=== PATIENT | female | born 1995 | race Caucasian/White ===

== ENCOUNTER 2021-04-18 10:40 | Emergency (ER) | payer OTHER, SELFPAY ==
--- NOTE | ~2021-04-18 | CT_ITS ---
Indication: Headache EXAMINATION: CT brain, CT facial bones. Radiation dose is 656 and 399. Axial imaging with coronal and sagittal reformatted images. Noncontrast. Comparison previous dated 01/07/2020 CT brain; No midline shift. No mass effect. There is no hemorrhage. The basilar cisterns appear patent. The posterior fossa risk grossly within normal limits. There is no extra-axial collection. The gutierrez-white matter is within normal limits. Ventricular system within normal limits. Review of the bone windows does not demonstrate evidence for fracture. CT facial bones; The sinuses are grossly clear. There is no fracture. CT/CT facial bones wo con IMPRESSION: Negative acute noncontrast CT of the brain. The sinuses are clear. No fracture of the facial bones.
--- NOTE | ~2021-04-18 | CT_ITS ---
Indication: Headache EXAMINATION: CT brain, CT facial bones. Radiation dose is 656 and 399. Axial imaging with coronal and sagittal reformatted images. Noncontrast. Comparison previous dated 01/07/2020 CT brain; No midline shift. No mass effect. There is no hemorrhage. The basilar cisterns appear patent. The posterior fossa risk grossly within normal limits. There is no extra-axial collection. The gutierrez-white matter is within normal limits. Ventricular system within normal limits. Review of the bone windows does not demonstrate evidence for fracture. CT facial bones; The sinuses are grossly clear. There is no fracture. CT/CT head/brain wo con IMPRESSION: Negative acute noncontrast CT of the brain. The sinuses are clear. No fracture of the facial bones.
[2021-04-18 11:40] VITALS: BP 117/68; PULSE 70; RESP 16; TEMP 36.5; O2SAT 98; BMI 33.3
--- NOTE | 2021-04-18 15:47 | ED_ITS ---
HPI - General Adult General Chief complaint: General Medical <Jorge Rasmussen MD - Last Filed: 04/18/21 17:02> Stated complaint: jaw pain, numb lip <Jorge Rasmussen MD - Last Filed: 04/18/21 17:02> Time Seen by Provider: 04/18/21 15:23 <Jorge Rasmussen MD - Last Filed: 04/18/21 17:02> Source: patient <Jorge Rasmussen MD - Last Filed: 04/18/21 17:02> Mode of arrival: ambulatory <Jorge Rasmussen MD - Last Filed: 04/18/21 17:02> Limitations: no limitations <Jorge Rasmussen MD - Last Filed: 04/18/21 17:02> History of Present Illness HPI narrative: this is 26 years old of female presented to the emergency depart complaining of right jaw pain since last night and now she is complaining of right-sided headache. She does have a history of migraines denies any fever chills she denies any neck pain <Jorge Rasmussen MD - Last Filed: 04/18/21 17:02> Onset (ago): day(s) (1) <Jorge Rasmussen MD - Last Filed: 04/18/21 17:02> Location: head and right <Jorge Rasmussen MD - Last Filed: 04/18/21 17:02> Radiation: other (rt jaw) <Jorge Rasmussen MD - Last Filed: 04/18/21 17:02> Severity: moderate <Jorge Rasmussen MD - Last Filed: 04/18/21 17:02> Severity scale (1-10): 5 <Jorge Rasmussen MD - Last Filed: 04/18/21 17:02> Quality: aching <Jorge Rasmussen MD - Last Filed: 04/18/21 17:02> Pain Consistency: constant <Jorge Rasmussen MD - Last Filed: 04/18/21 17:02> Exacerbating factors: none <Jorge Rasmussen MD - Last Filed: 04/18/21 17:02> Related Data Home medications: Home Medications Medication Instructions Recorded Confirmed escitalopram oxalate 20 mg PO DAILY 04/18/21 04/18/21 Previous Rx's Medication Instructions Recorded ketorolac 10 mg PO TID PRN 5 Days tab 04/18/21 <Jorge Rasmussen MD - Last Filed: 04/18/21 17:02> Allergies/adverse reactions: Allergies Allergy/AdvReac Type Severity Reaction Status Date / Time No Known Allergies Allergy Verified 04/18/21 11:40 <Jorge Rasmussen MD - Last Filed: 04/18/21 17:02> Review of Systems Review of Systems: Yes all other systems are reviewed and are negative <Jorge Rasmussen MD - Last Filed: 04/18/21 17:02> Cardiovascular: Cardiovascular: Reports no additional cardiovascular complaints <Jorge Rasmussen MD - Last Filed: 04/18/21 17:02> Respiratory: Respiratory: Denies no additional respiratory complaints, Denies hemoptysis and Denies excessive phlegm production <Jorge Rasmussen MD - Last Filed: 04/18/21 17:02> Gastrointestinal: Gastrointestinal: Denies no additional gastrointestinal complaints, Denies abdominal pain and Denies belching <Jorge Rasmussen MD - Last Filed: 04/18/21 17:02> Musculoskeletal: Musculoskeletal: Reports no additional musculoskeletal complaints <Jorge Rasmussen MD - Last Filed: 04/18/21 17:02> Neurologic: Reports system reviewed and no additional complaints, except as documented <Jorge Rasmussen MD - Last Filed: 04/18/21 17:02> [facility] Past Medical History Medical History: Medical History Migraines <Jorge Rasmussen MD - Last Filed: 04/18/21 17:02> Social History Social History: Social History Alcohol intake: never Patient Tobacco Use Status: Never used Tobacco Use of substances other than those prescribed or required for medical reasons: No Advance Directives: Yes Advance Directives Information Provided: Yes Advance Directives on File: No <Jorge Rasmussen MD - Last Filed: 04/18/21 17:02> Physical Exam Vital Signs: Vital Signs: Last Vital Signs Temp 97.7 F 04/18/21 11:40 Pulse 62 04/18/21 17:45 Resp 17 04/18/21 17:45 BP 113/63 04/18/21 17:45 Pulse Ox 98 04/18/21 17:45 Body Mass Index 33.3 <Jorge Rasmussen MD - Last Filed: 04/18/21 17:02> Vital Signs: Last Vital Signs Temp 97.7 F 04/18/21 11:40 Pulse 62 04/18/21 17:45 Resp 17 04/18/21 17:45 BP 113/63 04/18/21 17:45 Pulse Ox 98 04/18/21 17:45 Body Mass Index 33.3 <Ana Ballesteros MD - Last Filed: 04/18/21 19:34> Const: General: cooperative <Jorge Rasmussen MD - Last Filed: 04/18/21 17:02> Orientation/consciousness: oriented to person and oriented to place <Jorge Rasmussen MD - Last Filed: 04/18/21 17:02> HENMT: Head: Yes normal to inspection and Yes No palpable skull fracture present <Jorge Rasmussen MD - Last Filed: 04/18/21 17:02> Eyes: General: appearance normal, both eyes and all related structures <Jorge Rasmussen MD - Last Filed: 04/18/21 17:02> Neck: Neck: Yes normal visual inspection, Yes full ROM and Yes no lymph adenopathy <Jorge Rasmussen MD - Last Filed: 04/18/21 17:02> Chest: Chest palpation & inspection: normal inspection of the chest and normal palpation of entire chest wall <Jorge Rasmussen MD - Last Filed: 04/18/21 17:02> Resp: Effort & Inspection: normal respiratory effort and able to speak in complete sentences <Jorge Rasmussen MD - Last Filed: 04/18/21 17:02> Cardio: Jugular venous distension: no JVD <Jorge Rasmussen MD - Last Gus ed: 04/18/21 17:02> Palpation: normal PMI <Jorge Rasmussen MD - Last Filed: 04/18/21 17:02> Rate: regular rate <Jorge Rasmussen MD - Last Filed: 04/18/21 17:02> Rhythm: regular rhythm <Jorge Rasmussen MD - Last Filed: 04/18/21 17:02> GI: Inspection: Yes normal to inspection <Jorge Rasmussen MD - Last Filed: 04/18/21 17:02> Skin: General skin exam: no rashes or lesions noted, elasticity normal and turgor normal <Jorge Rasmussen MD - Last Filed: 04/18/21 17:02> Neuro: General: oriented to person and oriented to place <Jorge Rasmussen MD - Last Filed: 04/18/21 17:02> Cranial nerves: Yes CN's II-XII intact bilaterally <Jorge Rasmussen MD - Last Filed: 04/18/21 17:02> Extrem: General: Yes normal to inspection, Yes full ROM, Yes capillary refill normal, Yes normal exam except as noted and Yes no joint enlargement <Jorge Rasmussen MD - Last Filed: 04/18/21 17:02> Psych: Appearance: grossly normal <Jorge Rasmussen MD - Last Filed: 04/18/21 17:02> Course Course Course Narrative: imaging is negative, I discussed the CT scan with the patient. It seems that the patient's pain source is a wisdom tooth in the right maxillary side. The gum itself is not infected, patient denies constant pain, only when she chews on that side. Patient will follow-up with her dentist. <Ana Ballesteros MD - Last Filed: 04/18/21 19:34> Reevaluation(s) Reevaluation #1: remain stable waiting for the imaging result, she has a normal white count she is afebrile neck is supple I do not think this patient has meningitis picture is no consistent with a subarachnoid bleed headache was not sudden started in the jaw. I anticipate discharge if the imaging are negative <Jorge Rasmussen MD - Last Filed: 04/18/21 17:02> Medical Decision Making Lab Data Result diagrams: : 04/18/21 16:19 04/18/21 16:19 <Jorge Rasmussen MD - Last Filed: 04/18/21 17:02> Labs: Lab Results 04/18/21 04/18/21 Range/Units 16:19 16:19 WBC 7.1 (4.8-10.8) X10*3/uL RBC 4.38 (4.20-5.50) X10*6/uL Hgb 12.0 (12.0-16.0) g/dl Hct 37.6 (37-47) % MCV 85.8 (80-98) fL MCH 27.4 (27.0-33.0) pg MCHC 31.9 (31.0-35.0) g/dl RDW 13.0 (11.0-16.0) % Plt Count 279 (160-400) X10*3/uL MPV 10.8 (9.4-12.3) fL Immature Gran % (Auto) 0.1 (0.0-0.4) % Neut % (Auto) 65.1 (45-73) % Lymph % (Auto) 26.0 (20-40) % [place] % (Auto) 6.9 (2-11) % Eos % (Auto) 1.6 (0-4) % Baso % (Auto) 0.3 (0-2) % Lymph # (Auto) 1.8 (1.2-4.9) X10*3/uL [place] # (Auto) 0.5 (0.1-1.2) X10*3/uL Eos # (Auto) 0.1 (0.0-0.4) X10*3/uL Baso # (Auto) 0.0 (0.0-0.2) X10*3/uL Abs Immat Gran (auto) 0.01 (0.00-0.03) X10*3/uL Absolute Neuts (auto) 4.6 (2.0-8.3) X10*3/uL Absolute Nucleated RBC 0.000 (0.0-0.012) X10*3/uL Nucleated RBC % (auto) 0.0 (0.0-0.2) /100WBC Sodium 140 (135-145) mmol/L Potassium 4.0 (3.3-5.1) mmol/L Chloride 105 (96-108) mmol/L Carbon Dioxide 27 (22-29) mmol/L Anion Gap 12 (12-20) BUN 11 (9-16) mg/dL Creatinine 0.74 (0.5-1.4) mg/dL Estim Creat Clear Calc 125.9 Estimated GFR > 60 Random Glucose 90 (60-115) mg/dL Calcium 9.2 (8.4-10.2) mg/dL Total Bilirubin 0.5 (0.0-1.0) mg/dL AST 18 (5-31) U/L ALT 16 (0-31) U/L Alkaline Phosphatase 86 (39-117) U/L Total Protein 7.5 (6.5-8.0) g/dL Albumin 4.4 (3.5-5.0) g/dL Beta HCG, Quant < 2 mIU/mL <Jorge Rasmussen MD - Last Filed: 04/18/21 17:02> Lab Results 04/18/21 04/18/21 Range/Units 16:19 16:19 WBC 7.1 (4.8-10.8) X10*3/uL RBC 4.38 (4.20-5.50) X10*6/uL Hgb 12.0 (12.0-16.0) g/dl Hct 37.6 (37-47) % MCV 85.8 (80-98) fL MCH 27.4 (27.0-33.0) pg MCHC 31.9 (31.0-35.0) g/dl RDW 13.0 (11.0-16.0) % Plt Count 279 (160-400) X10*3/uL MPV 10.8 (9.4-12.3) fL Immature Gran % (Auto) 0.1 (0.0-0.4) % Neut % (Auto) 65.1 (45-73) % Lymph % (Auto) 26.0 (20-40) % [place] % (Auto) 6.9 (2-11) % Eos % (Auto) 1.6 (0-4) % Baso % (Auto) 0.3 (0-2) % Lymph # (Auto) 1.8 (1.2-4.9) X10*3/uL [place] # (Auto) 0.5 (0.1-1.2) X10*3/uL Eos # (Auto) 0.1 (0.0-0.4) X10*3/uL Baso # (Auto) 0.0 (0.0-0.2) X10*3/uL Abs Immat Gran (auto) 0.01 (0.00-0.03) X10*3/uL Absolute Neuts (auto) 4.6 (2.0-8.3) X10*3/uL Absolute Nucleated RBC 0.000 (0.0-0.012) X10*3/uL Nucleated RBC % (auto) 0.0 (0.0-0.2) /100WBC Sodium 140 (135-145) mmol/L Potassium 4.0 (3.3-5.1) mmol/L Chloride 105 (96-108) mmol/L Carbon Dioxide 27 (22-29) mmol/L Anion Gap 12 (12-20) BUN 11 (9-16) mg/dL Creatinine 0.74 (0.5-1.4) mg/dL Estim Creat Clear Calc 125.9 Estimated GFR > 60 Random Glucose 90 (60-115) mg/dL Calcium 9.2 (8.4-10.2) mg/dL Total Bilirubin 0.5 (0.0-1.0) mg/dL AST 18 (5-31) U/L ALT 16 (0-31) U/L Alkaline Phosphatase 86 (39-117) U/L Total Protein 7.5 (6.5-8.0) g/dL Albumin 4.4 (3.5-5.0) g/dL Beta HCG, Quant < 2 mIU/mL <Ana Ballesteros MD - Last Filed: 04/18/21 19:34> Imaging Data face and head CT: Radiologist's impression: [address] Scan ReportSigned Patient: Martina Chou LMR#: [id number]: 1995Acct:[id number]/Sex: 26 / FADM Date: 04/18/21Loc: [address]: Ordering Physician: JORGE RASMUSSEN MD Date of Service: 04/18/21 Procedure(s): CT facial bones wo con Accession Number(s): [id number] cc: JORGE RASMUSSEN MD~ Indication: Headache EXAMINATION: CT brain, CT facial bones. Radiation dose is 656 and 399. Axial imaging with coronal and sagittal reformatted images. Noncontrast. Comparison previous dated 01/07/2020 CT brain; No midline shift. No mass effect. There is no hemorrhage. The basilar cisterns appear patent. The posterior fossa risk grossly within normal limits. There is no extra-axial collection. The gutierrez-white matter is within normal limits. Ventricular system within normal limits. Review of the bone windows does not demonstrate evidence for fracture. CT facial bones; The sinuses are grossly clear. There is no fracture. CT/CT facial bones wo con IMPRESSION: Negative acute noncontrast CT of the brain. The sinuses are clear. No fracture of the facial bones. <Ana Ballesteros MD - Last Filed: 04/18/21 19:34> Discharge Plan Discharge Clinical Impression: Jaw pain <Jorge Rasmussen MD - Last Filed: 04/18/21 17:02> Patient Disposition: Home, Self-Care <Jorge Rasmussen MD - Last Filed: 04/18/21 17:02> Additional Instructions: please follow-up with her dentist. Please follow-up with your primary care physician tomorrow. If you have any worsening or new symptoms, please return to the emergency room or call 911 <Jorge Rasmussen MD - Last Filed: 04/18/21 17:02> Prescriptions: New ketorolac 10 mg tablet 10 mg PO TID PRN (Reason: pain) 5 Days RF: 0 No Action escitalopram oxalate 20 mg Tablet 20 mg PO DAILY RF: 0 <Jorge Rasmussen MD - Last Filed: 04/18/21 17:02>
[2021-04-18 16:32] LABS: MANUAL DIFF FLAG NO
[2021-04-18 16:36] LABS: Basophils Percent Auto 0.3 % (0-2); Eosinophils Absolute Auto 0.1 X10*3/uL (0.0-0.4); Eosinophils Percent Auto 1.6 % (0-4); Hematocrit 37.6 % (37-47); Imm Gran Abs Auto 0.01 X10*3/uL (0.00-0.03); Imm Gran Pct Auto 0.1 % (0.0-0.4); Lymphocytes Absolute Auto 1.8 X10*3/uL (1.2-4.9); Mean Corpuscular HGB Conc 31.9 g/dl (31.0-35.0); Mean Corpuscular Hemoglobin 27.4 pg (27.0-33.0); Mean Corpuscular Volume 85.8 fL (80-98); Mean Platelet Volume 10.8 fL (9.4-12.3); Monocytes Absolute Auto 0.5 X10*3/uL (0.1-1.2); Monocytes Percent Auto 6.9 % (2-11); Neutrophils Absolute Auto 4.6 X10*3/uL (2.0-8.3); Neutrophils Percent Auto 65.1 % (45-73); Platelet Count 279 X10*3/uL (160-400); Red Blood Count 4.38 X10*6/uL (4.20-5.50); White Blood Count 7.1 X10*3/uL (4.8-10.8)
[2021-04-18] MEDS: Ketorolac Tromethamine 15 MG/ML VIAL IVPUSH (16:40)
[2021-04-18 17:06] LABS: Alanine Aminotransferase 16 U/L (0-31); Albumin Level 4.4 g/dL (3.5-5.0); Alkaline Phosphatase 86 U/L (39-117); Anion Gap 12 (12-20); Aspartate Amino Transferase 18 U/L (5-31); Bilirubin Total 0.5 mg/dL (0.0-1.0); Blood Urea Nitrogen 11 mg/dL (9-16); Calcium 9.2 mg/dL (8.4-10.2); Carbon Dioxide 27 mmol/L (22-29); Chloride 105 mmol/L (96-108); Creatinine Clr Calc Pharmacy 125.9; Estimated Glomerular Filt Rate > 60; Glucose Random 90 mg/dL (60-115); Sodium 140 mmol/L (135-145); Total Protein 7.5 g/dL (6.5-8.0)
[2021-04-18 17:12] LABS: HCG Quantitative < 2 mIU/mL
[2021-04-18] MEDS: Butalb/Acetamin/Caff 50/325/40 TABLET 2 TAB PO (17:40)
[2021-04-18 17:45] VITALS: BP 113/63; PULSE 62; RESP 17; O2SAT 98
--- NOTE | 2021-04-18 17:55 | HE.PHANOTE ---
med rec complete, no issues
[2021-04-18 19:51] VITALS: BP 107/55; PULSE 63; RESP 18; O2SAT 99
== END 2021-04-18 19:52 | disposition home or self-care (01) ==
PROVIDERS: Emergency Medicine; Emergency Provider Emergency Medicine
DX: R68.84 Jaw pain (principal)
CPT/HCPCS: 36415; 70450; 70486; 80053; 84702; 85025; 96374; 99284; J1885

== ENCOUNTER 2021-05-01 17:27 | Emergency (ER) | payer OTHER, SELFPAY ==
--- NOTE | ~2021-05-01 | CT_ITS ---
EXAMINATION: CT HEAD WITHOUT CONTRAST CLINICAL INFORMATION: Facial droop COMPARISON: 04/18/2021 TECHNIQUE: Contiguous axial imaging was performed from the skull base to vertex without intravenous administration of contrast. This CT examination was performed using dose optimization techniques as appropriate, variously including the following: *Automated exposure control *Adjustment of mA and/or kV according to patient size (this includes techniques or standardized protocols for targeted exams where dose is matched to indication/reason for exam; i.e. extremities or head) *Use of iterative reconstruction technique DLP: 687 mGy-cm FINDINGS: There is no evidence of acute intracranial hemorrhage or territorial infarction. No abnormal mass effect or midline shift is seen. Page to white matter differentiation is well preserved. No extra-axial fluid collections are identified. The ventricles are normal in size. There is no abnormal attenuation within the brain parenchyma. The osseous structures and soft tissues are normal. The mastoid air cells and visualized portions of the paranasal sinuses are well aerated. CT/CT head/brain wo con IMPRESSION: No acute intracranial pathology.
[2021-05-01 17:32] VITALS: BP 118/82; PULSE 66; RESP 16; TEMP 36.8; O2SAT 98; BMI 33.3
[2021-05-01 18:31] LABS: MANUAL DIFF FLAG NO
[2021-05-01 18:38] LABS: INTERNATIONAL NORM RATIO 1.1 (0.9-1.1)
[2021-05-01 18:40] LABS: Partial Thromboplastin Time 35.3 SEC (24.1-38.0)
[2021-05-01 18:45] VITALS: BP 117/70; PULSE 54; RESP 16; TEMP 36.8; O2SAT 99
[2021-05-01 18:47] LABS: Basophils Percent Auto 0.3 % (0-2); Eosinophils Absolute Auto 0.1 X10*3/uL (0.0-0.4); Eosinophils Percent Auto 2.1 % (0-4); Hemoglobin 11.5 g/dl (12.0-16.0); Imm Gran Abs Auto 0.01 X10*3/uL (0.00-0.03); Imm Gran Pct Auto 0.2 % (0.0-0.4); Lymphocytes Absolute Auto 1.3 X10*3/uL (1.2-4.9); Lymphocytes Percent Auto 21.3 % (20-40); Mean Corpuscular HGB Conc 31.9 g/dl (31.0-35.0); Mean Corpuscular Hemoglobin 27.2 pg (27.0-33.0); Mean Corpuscular Volume 85.1 fL (80-98); Mean Platelet Volume 10.6 fL (9.4-12.3); Monocytes Absolute Auto 0.5 X10*3/uL (0.1-1.2); Monocytes Percent Auto 7.9 % (2-11); Neutrophils Absolute Auto 4.2 X10*3/uL (2.0-8.3); Neutrophils Percent Auto 68.2 % (45-73); Platelet Count 322 X10*3/uL (160-400); Red Blood Count 4.23 X10*6/uL (4.20-5.50); Red Cell Distribution Width 13.1 % (11.0-16.0); White Blood Count 6.1 X10*3/uL (4.8-10.8)
[2021-05-01 19:01] LABS: Alanine Aminotransferase 13 U/L (0-31); Albumin Level 4.3 g/dL (3.5-5.0); Alkaline Phosphatase 79 U/L (39-117); Anion Gap 13 (12-20); Aspartate Amino Transferase 16 U/L (5-31); Bilirubin Total 0.5 mg/dL (0.0-1.0); Blood Urea Nitrogen 12 mg/dL (9-16); Calcium 9.3 mg/dL (8.4-10.2); Carbon Dioxide 26 mmol/L (22-29); Chloride 105 mmol/L (96-108); Creatinine Clr Calc Pharmacy 112.3; Estimated Glomerular Filt Rate > 60; Glucose Random 94 mg/dL (60-115); Potassium 4.6 mmol/L (3.3-5.1); Sodium 139 mmol/L (135-145); Total Protein 7.4 g/dL (6.5-8.0)
--- NOTE | 2021-05-01 19:07 | ED_ITS ---
HPI - Neuro Symptoms/Deficit General Chief Complaint: Neuro Symptoms/Deficit Stated Complaint: stroke like Time Seen by Provider: 05/01/21 17:56 Source: patient Mode of arrival: ambulatory Limitations: no limitations History of Present Illness HPI Narrative: Patient presents to the ER for for left facial droop that began around 12:00. Patient states watery and tearing from left eye with left-sided facial droop. Patient denies any slurred speech, paralysis of extremities, loss of vision, headache, or dizziness. Patient denies being on any control any history of stroke or family history of stroke less than 40. Patient states last week she saw a bite on the posterior of her left arm and does not know if it was a tick bite. Patient states facial droop occurred around 12:00pm. Related Data Home Medications Medication Instructions Recorded Confirmed escitalopram oxalate 20 mg PO DAILY 04/18/21 04/18/21 Previous Rx's Medication Instructions Recorded ketorolac 10 mg PO TID PRN 5 Days tab 04/18/21 doxycycline hyclate 100 mg PO BID 7 Days #14 cap 05/01/21 prednisone 40 mg PO DAILY 5 Days #10 tab 05/01/21 Allergies Allergy/AdvReac Type Severity Reaction Status Date / Time No Known Allergies Allergy Verified 04/18/21 11:40 Review of Systems Review of Systems: Yes all other systems are reviewed and are negative Constitutional: Constitutional: Reports as per HPI and Reports no additional constitutional complaints Eyes: Eyes: Reports as per HPI and Reports no additional eye complaints ENT: Reports system reviewed and no additional complaints, except as documented and Reports as per HPI Cardiovascular: Cardiovascular: Reports as per HPI and Reports no additional cardiovascular complaints Respiratory: Respiratory: Reports as per HPI and Reports no additional res piratory complaints Gastrointestinal: Gastrointestinal: Reports as per HPI and Reports no addition al gastrointestinal complaints Genitourinary: Genitourinary: Reports no additional female genitourinary complaints and Reports as per HPI Musculoskeletal: Musculoskeletal: Reports no additional musculoskeletal complaints and Reports as per HPI Neurologic: Reports system reviewed and no additional complaints, except as documented and Reports as per HPI Comments: Left-sided facial droop PMFSH Past Medical History Medical History Migraines Social History Social History Alcohol intake: never Patient Tobacco Use Status: Never used Tobacco Advance Directives: No Advance Directives Information Provided: Yes Physical Exam Vital Signs: Vital Signs: Last Vital Signs Temp 98.2 F 05/01/21 18:45 Pulse 54 05/01/21 18:45 Resp 16 05/01/21 18:45 BP 117/70 05/01/21 18:45 Pulse Ox 99 05/01/21 18:45 Body Mass Index 33.3 Const: General: cooperative, healthy appearing, comfortable, no acute distress, well developed, alert and awake Orientation/consciousness: patient oriented x3 HENMT: Head: Yes normal to inspection, Yes No palpable skull fracture present, Yes normocephalic, Yes atraumatic and No abrasion Eyes: General: appearance normal, both eyes and all related structures Neck: Neck: Yes normal visual inspection, Yes full ROM, Yes no lymphadenopathy, Yes no meningeal signs, Yes trachea midline, Yes supple and No tender Chest: Chest palpation & inspection: normal inspection of the chest and normal palpation of entire chest wall Resp: Effort & Inspection: normal respiratory effort and able to speak in complete sentences Cardio: Jugular venous distension: no JVD Heart sounds: S1 normal heart sound present and S2 normal heart sound present GI: Inspection: Yes normal to inspection and No abdominal wall ecchymosis Palpation (GI): Soft to palpation, not firm, nontender, no guarding and not rigid : General: No CVA tenderness and Yes no CVA tenderness Back/Spine/Pelvis: Back: no CVA tenderness, No CVA tenderness and No back tenderness Skin: General skin exam: no rashes or lesions noted and elasticity normal Neuro: Other: Positive for left facial droop. Patient unable to lift left eyebrow and negative for any wrinkling or crease of left forehead when asking her to lift both eyebrows. Negative for slurred speech. Negative pronator drift. All extremities equal strength 5+. [id number] and rapid head movement. negtive rhomberg. General: patient oriented x3, gait normal, no meningeal signs and CN's II-XI intact bilaterally Cranial nerves: Yes CN's II-XII intact bilaterally Extrem: Shoulder/upper arm images: 1. Area of erythema and tenderness but negative for any bull's eye Psych: Appearance: grossly normal, well kempt and not disheveled Course Course Course Narrative: Decides facial droop negative for any other neuro deficits. Diagnosis indicate Gonsalves's palsy. We will do head CT scan screen and order labs including Lyme and HSV. Presently physical exam does not indicate [place] Th[place]kar syndrome Reevaluation(s) Reevaluation #1: His CT scan came back normal. Dr. Peraza evaluated patient and agreed patient is having gonsalves's palsy and not stroke. Patient will be discharged with doxycycline and steroids. Patient will follow-up with neurology. Patient's has left facial droop. Time: 19:37 MDM - Neuro Symptoms/Deficit MDM Narrative Medical decision making narrative: Gonsalves's palsy Lab Data Result diagrams: 05/01/21 18:25 05/01/21 18:25 Labs: Lab Results 05/01/21 05/01/21 05/01/21 Range/Units 18:25 18:25 18:25 WBC 6.1 (4.8-10.8) X10*3/uL RBC 4.23 (4.20-5.50) X10*6/uL Hgb 11.5 L (12.0-16.0) g/dl Hct 36.0 L (37-47) % MCV 85.1 (80-98) fL MCH 27.2 (27.0-33.0) pg MCHC 31.9 (31.0-35.0) g/dl RDW 13.1 (11.0-16.0) % Plt Count 322 (160-400) X10*3/uL MPV 10.6 (9.4-12.3) fL Immature Gran % (Auto) 0.2 (0.0-0.4) % Neut % (Auto) 68.2 (45-73) % Lymph % (Auto) 21.3 (20-40) % [place] % (Auto) 7.9 (2-11) % Eos % (Auto) 2.1 (0-4) % Baso % (Auto) 0.3 (0-2) % Lymph # (Auto) 1.3 (1.2-4.9) X10*3/uL [place] # (Auto) 0.5 (0.1-1.2) X10*3/uL Eos # (Auto) 0.1 (0.0-0.4) X10*3/uL Baso # (Auto) 0.0 (0.0-0.2) X10*3/uL Abs Immat Gran (auto) 0.01 (0.00-0.03) X10*3/uL Absolute Neuts (auto) 4.2 (2.0-8.3) X10*3/uL Absolute Nucleated RBC 0.000 (0.0-0.012) X10*3/uL Nucleated RBC % (auto) 0.0 (0.0-0.2) /100WBC PT 13.0 (9.9-13.0) SEC INR 1.1 (0.9-1.1) APTT 35.3 (24.1-38.0) SEC Sodium 139 (135-145) mmol/L Potassium 4.6 (3.3-5.1) mmol/L Chloride 105 (96-108) mmol/L Carbon Dioxide 26 (22-29) mmol/L Anion Gap 13 (12-20) BUN 12 (9-16) mg/dL Creatinine 0.83 (0.5-1.4) mg/dL Estim Creat Clear Calc 112.3 Estimated GFR > 60 Random Glucose 94 (60-115) mg/dL Calcium 9.3 (8.4-10.2) mg/dL Total Bilirubin 0.5 (0.0-1.0) mg/dL AST 16 (5-31) U/L ALT 13 (0-31) U/L Alkaline Phosphatase 79 (39-117) U/L Total Protein 7.4 (6.5-8.0) g/dL Albumin 4.3 (3.5-5.0) g/dL Discharge Plan Discharge Clinical Impression: Gonsalves's palsy Patient Disposition: Home, Self-Care Instructions: Gonsalves Palsy (ED) Additional Instructions: A head CT scan came back negative for stroke. History physical exam indicate Gonsalves's palsy. Her Lyme and HSV blood test is still pending and will be followed up by a [facility] primary care provider and referred neurologist. You will be discharged with doxycycline and prednisone. Return to the ED immediately for any slurred speech, paralysis of extremities, loss of vision, or any other concerning symptoms. Prescriptions: New prednisone 20 mg tablet 40 mg PO DAILY 5 Days Qty: 10 RF: 0 doxycycline hyclate 100 mg capsule 100 mg PO BID 7 Days Qty: 14 RF: 0 No Action escitalopram oxalate 20 mg Tablet 20 mg PO DAILY RF: 0 ketorolac 10 mg tablet 10 mg PO TID PRN (Reason: pain) 5 Days RF: 0 Referrals: Omar Wesley MD [Physician] - 2 days (Gonsalves's palsy. Lyme and HSV testing pending) Anish Austin MD [Primary Care Provider] - 2 days (Gonsalves's palsy. Lyme and HSV testing pending. Head CT scan came back normal) Stand Alone Forms: Work/School Release Interventions: ED Discharge Assessment Last Done: 05/01/21 20:21 Discharge Date/Time: 05/01/21 20:22 Print Language: Sami
[2021-05-04 06:47] LABS: Lyme Blot 7.52 index
[2021-05-04 08:10] LABS: Lyme Abs Screen POSITIVE
[2021-05-09 14:01] LABS: HSV 1 IgM IFA Negative (Negative); HSV 2 IgM IFA Negative (Negative)
[2021-05-10 23:07] LABS: 18 KD (IgG) Band REACTIVE; 23 KD (IgG) Band NON-REACTIVE; 23 KD (IgM) Band REACTIVE; 28 KD (IgG) Band NON-REACTIVE; 30 KD (IgG) Band NON-REACTIVE; 39 KD (IgM) Band REACTIVE; 41 KD (IgM) Band REACTIVE; 45 KD (IgG) Band NON-REACTIVE; 58 KD (IgG) Band NON-REACTIVE; 66 KD (IgG) Band NON-REACTIVE; 93 KD (IgG) Band NON-REACTIVE; Lyme IgG Blot Interp NEGATIVE (NEGATIVE); Lyme IgM Blot Interp POSITIVE (NEGATIVE)
== END 2021-05-01 20:22 | disposition home or self-care (01) ==
PROVIDERS: Physician Assistant; Emergency Provider Emergency Medicine; PCP Internal Medicine
DX: G51.0 Bell's palsy (principal); A69.20 Lyme disease, unspecified
CPT/HCPCS: 36415; 70450; 80053; 85025; 85610; 85730; 86617; 86618; 86695; 86696; 99283; 99284

== ENCOUNTER 2021-05-26 18:44 | Emergency (ER) | payer OTHER, SELFPAY ==
[2021-05-26 19:07] VITALS: BP 105/72; PULSE 65; RESP 16; TEMP 36.9; O2SAT 98; BMI 31.6
--- NOTE | 2021-05-26 19:12 | ECG_ITS ---
Test Reason : CHEST PAIN Blood Pressure : / mmHG Vent. Rate : 059 BPM Atrial Rate : 059 BPM P-R Int : 154 ms QRS Dur : 100 ms QT Int : 398 ms P-R-T Axes : -08 042 015 degrees QTc Int : 394 ms Sinus bradycardia Otherwise normal ECG When compared with ECG of 07-JAN-2020 09:56, No significant change was found Referred By: Generic ED Physician Electronically Signed By:Isaiah Barakat
--- NOTE | 2021-05-26 21:07 | ED_ITS ---
HPI - Chest Pain General Chief Complaint: Chest Pain Stated Complaint: shoulder pain Time Seen by Provider: 05/26/21 21:00 Source: patient Mode of arrival: ambulatory Limitations: no limitations History of Present Illness HPI narrative: Patient comes emergency room complaining of anxiety, and suprascapular pain, pain with shoulder rotation in her back. Patient states it started this morning. Patient states that whenever she is on her phone and is feeling anxious she has this pain. When she is not on her phone, does not feel anxious and does not have the pain. Patient denies any recent injury, no trauma. Patient denies chest pain, no shortness of breath. Patient states when she feels very anxious, she has trouble swallowing, then self resolves Related Data Home Medications Medication Instructions Recorded Confirmed escitalopram oxalate 20 mg tablet 20 mg PO DAILY 04/18/21 04/18/21 Previous Rx's Medication Instructions Recorded ketorolac 10 mg tablet 10 mg PO TID PRN 5 Days tab 04/18/21 doxycycline hyclate 100 mg capsule 100 mg PO BID 7 Days #14 cap 05/01/21 prednisone 20 mg tablet 40 mg PO DAILY 5 Days #10 tab 05/01/21 doxycycline monohydrate 100 mg 100 mg PO BID #20 cap 05/06/21 capsule cyclobenzaprine 10 mg tablet 10 mg PO TID PRN #7 tab 05/26/21 ibuprofen 600 mg tablet 600 mg PO TID PRN #10 tab 05/26/21 Allergies Allergy/AdvReac Type Severity Reaction Status Date / Time No Known Allergies Allergy Verified 04/18/21 11:40 Review of Systems Review of Systems: Constitutional : No Weight loss, No Fever, No Chills, No Night Sweats, No Fatigue, No Malaise ENT/Mouth : No Hearing loss, No Ear Pain, No Nasal Congestion, No Sinus Pain, No Hoarseness, No sore throat, No Rhinorrhea, No Swallowing Difficulty Eyes: No Eye Pain, No Swelling, No Redness, No Foreign Body, No Discharge, No Vision Changes Cardiovascular : No Chest Pain, No SOB, No Dyspnea on Exertion, No Orthopnea, No Edema, No Palpitations Respiratory : No Cough, No Sputum, No Wheezing, No Smoke Exposure, No Dyspnea Gastrointestinal : No Nausea, No Vomiting, No Diarrhea, No Constipation, No abdominal Pain, No Hematochezia, No Melena Genitourinary : no irregular bleeding, No Dysuria, No Urinary Frequency, No Hematuria, No Urinary Incontinence, No Urgency, No Flank Pain, No Urinary Flow Changes, No Hesitancy Musculoskeletal : Suprascapular pain, worsened by rotation of the shoulder Skin : No Skin Lesions, No rash Neuro : No Weakness, No Numbness, No Paresthesias, No Loss of Consciousness, No Dizziness, No Headache Psych : No Anxiety/Panic, No Depression, No SI/HI/AH/VH, No Social Issues, Heme/Lymph: No Bruising, No Bleeding,No Lymphadenopathy Endocrine : No Polyuria, No Polydipsia, No Temperature Intolerance [facility] Past Medical History Medical History Migraines Social History Social History Alcohol intake: never Patient Tobacco Use Status: Never used Tobacco Advance Directives: No Advance Directives Information Provided: No Physical Exam Vital Signs: Vital Signs: Last Vital Signs Temp 98.4 F 05/26/21 19:07 Pulse 65 05/26/21 19:07 Resp 16 05/26/21 19:07 BP 105/72 05/26/21 19:07 Pulse Ox 98 05/26/21 19:07 Body Mass Index 31.6 Const: Other: Appearance: Alert. Oriented X3. No acute distress. Eyes: Pupils equal, round and reactive to light. ENT: Pharynx normal. Neck: Normal inspection. Neck supple. No lymph nodes noted. No crepitus CVS: Normal heart rate and rhythm. Pulses normal. Normal S1 and S2 Respiratory: No respiratory distress. Breath sounds normal. No Wheezing. No rales Abdomen: Soft and nontender. No rigidity. No distention. good BS x4 Skin: Skin warm and dry. Normal skin color. Normal skin turgor. Extremities: No lower extremity edema. Pain to palpation over the suprascapular area and scapular area. Pain worsen with right arm movement. States Neuro: Oriented X 3. No motor deficit. No sensory deficit. Moving all extermities. No slurred speech. Course Course Course Narrative: I discussed the physical exam with the patient, pain likely musculoskeletal versus anxiety related. Toradol was offered to the patient, declines, she is afraid of needles. Discharge Plan Discharge Clinical Impression: Musculoskeletal back pain Patient Disposition: Home, Self-Care Instructions: Back Pain (ED) Additional Instructions: Please follow-up with your primary care physician tomorrow. If you have any worsening or new symptoms, please return to the emergency room or call 911 Prescriptions: New cyclobenzaprine 10 mg tablet 10 mg PO TID PRN (Reason: muscle spasm) Qty: 7 RF: 0 ibuprofen 600 mg tablet 600 mg PO TID PRN (Reason: pain) Qty: 10 RF: 0 No Action escitalopram oxalate 20 mg Tablet 20 mg PO DAILY RF: 0 ketorolac 10 mg tablet 10 mg PO TID PRN (Reason: pain) 5 Days RF: 0 prednisone 20 mg tablet 40 mg PO DAILY 5 Days Qty: 10 RF: 0 doxycycline hyclate 100 mg capsule 100 mg PO BID 7 Days Qty: 14 RF: 0 doxycycline monohydrate 100 mg capsule 100 mg PO BID Qty: 20 RF: 0
== END 2021-05-26 21:47 | disposition home or self-care (01) ==
PROVIDERS: Emergency Provider Emergency Medicine
DX: M54.6 Pain in thoracic spine (principal)
CPT/HCPCS: 93005; 99283

== ENCOUNTER 2021-07-10 11:21 | Outpatient (REF) | payer OTHER, SELFPAY | END 2021-07-10 11:22 | disposition home or self-care (01) | LOC: HO.LNP 11:21 | PROVIDERS: Visit Provider Internal Medicine | DX: Z00.00 Encounter for general adult medical examination without abnormal findings (principal); J06.9 Acute upper respiratory infection, unspecified | CPT/HCPCS: U0003; U0005 ==

== ENCOUNTER → 2021-09-03 08:50 | Outpatient (BNVA) | payer OTHER, SELFPAY | PROVIDERS: Visit Provider Advanced Practice Midwife | DX: Z30.011 Encounter for initial prescription of contraceptive pills (principal) | CPT/HCPCS: 99212 ==

== ENCOUNTER 2021-09-13 13:04 | Emergency (ER) | payer OTHER, SELFPAY ==
[2021-09-13 13:14] VITALS: BP 112/71; PULSE 75; RESP 18; TEMP 37; O2SAT 98; BMI 29.9
--- NOTE | 2021-09-13 13:22 | ED.HA ---
HPI - Headache General Chief Complaint: Headache Stated Complaint: headache Time Seen by Provider: 09/13/21 13:18 Source: patient Mode of arrival: ambulatory Limitations: no limitations History of Present Illness HPI Narrative: Patient has a history of headaches but it has been worse since having [facility] Palsy. she gets a lot of migraine symptoms with ocular findings. Patient states the left eye was blurry. patient states lack of sleep and caffeine make it worse. MD elicited complaint: headache and migraine Onset (ago): day(s) (1) Onset description: suddenly Location: left and frontal Quality & Timing: throbbing Exacerbating factors: light Relieving factors: sleep and other (darkness) Context: occurred at rest Associated symptoms: eye pain and vision loss Related Data Home Medications Medication Instructions Recorded Confirmed escitalopram oxalate 20 mg tablet 20 mg PO DAILY 04/18/21 04/18/21 escitalopram oxalate 10 mg tablet 10 mg PO DAILY 09/03/21 Previous Rx's Medication Instructions Recorded ketorolac 10 mg tablet 10 mg PO TID PRN 5 Days tab 04/18/21 doxycycline hyclate 100 mg capsule 100 mg PO BID 7 Days #14 cap 05/01/21 prednisone 20 mg tablet 40 mg PO DAILY 5 Days #10 tab 05/01/21 doxycycline monohydrate 100 mg 100 mg PO BID #20 cap 05/06/21 capsule cyclobenzaprine 10 mg tablet 10 mg PO TID PRN #7 tab 05/26/21 ibuprofen 600 mg tablet 600 mg PO TID PRN #10 tab 05/26/21 norethindrone (contraceptive) 0.35 0.35 mg PO DAILY #28 tab 09/03/21 mg tablet (Imelda) Allergies Allergy/AdvReac Type Severity Reaction Status Date / Time No Known Allergies Allergy Verified 09/13/21 13:13 Review of Systems Constitutional: Constitutional: Reports no additional constitutional complaints Eyes: Eyes: Reports no additional eye complaints ENT: Denies dizziness Cardiovascular: Cardiovascular: Reports no additional cardiovascular complaints Respiratory: Respiratory: Reports as per HPI Gastrointestinal: Gastrointestinal: Reports no additional gastrointestinal complaints Genitourinary: Genitourinary: Reports no additional female genitourinary complaints Musculoskeletal: Musculoskeletal: Reports no additional musculoskeletal complaints Integumentary/Breasts: Skin/Breast: Denies rash Neurologic: Reports system reviewed and no additional complaints, except as documented, Denies dizziness and Denies Sensory deficit (Neuro) Psychiatric: Psychiatric: Denies anxiety [facility] Past Medical History 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 Surgical History History of ankle surgery Social History Social History Alcohol intake: never Patient Tobacco Use Status: Never used Tobacco Use of substances other than those prescribed or required for medical reasons: No Advance Directives: No Advance Directives Information Provided: No Patient : No Physical Exam Vital Signs: Vital Signs: Last Vital Signs Temp 98.0 F 09/13/21 13:29 Pulse 61 09/13/21 14:40 Resp 16 09/13/21 14:40 BP 100/55 L 09/13/21 14:40 Pulse Ox 99 09/13/21 14:40 Body Mass Index 29.9 Const: General: healthy appearing Nutritional Appearance: average body habitus Orientation/consciousness: oriented to person and patient oriented x3 Limitations: no limitations HENMT: Head: Yes normal to inspection Ears: external ears normal General nose exam: Normal external nose present Mouth: Normal oral and palatal mucosa present and oropharynx normal Throat: Yes posterior oropharynx normal Eyes: General: appearance normal, both eyes and all related structures Neck: Other: supple Neck: Yes normal visual inspection Chest: Chest palpation & inspection: normal inspection of the chest Resp: Auscultation: clear to auscultation bilaterally Cardio: Jugular venous distension: no JVD Rate: regular rate Rhythm: regular rhythm Heart sounds: S1 normal heart sound present and S2 normal heart sound present GI: Inspection: Yes normal to inspection Palpation (GI): Soft to palpation, nontender and No hepatosplenomegaly present Auscultation: normal bowel sounds : General: Yes no CVA tenderness Back/Spine/Pelvis: Back: no CVA tenderness Skin: General skin exam: no rashes or lesions noted Neuro: General: oriented to person and patient oriented x3 Cranial nerves: Yes CN's II-XII intact bilaterally Motor exam (neuro): 5/5 motor strength present throughout Sensory Exam: No Sensory deficit (Neuro) Extrem: General: Yes normal to inspection Psych: Appearance: grossly normal Course Reevaluation(s) Reevaluation #1: patient feeling better will dc home Time: 15:40 MDM - Headache Lab Data Labs: Lab Results 09/13/21 09/13/21 Range/Units 14:39 14:39 Urine Color STRAW Urine Appearance CLOUDY Urine pH 7.0 (5.0-8.0) Ur Specific [place] 1.015 (1.005-1.025) Urine Protein TRACE (NEG-TRACE) MG/DL Urine Glucose (UA) NEG (NEG) MG/DL Urine Ketones NEG (NEG) MG/DL Urine Blood NEG (NEG) Urine Nitrite NEG (NEG) Ur Leukocyte Esterase 1+ H (NEG) Urine RBC 0 (0) /HPF Urine WBC 1-4 (0-4) /HPF Ur Squamous Epith Cells 4+ /LPF Urine Bacteria 2+ /LPF Urine Test NEGATIVE (NEGATIVE) Discharge Plan Discharge Clinical Impression: Migraine Qualifiers: Migraine type: without aura Status migrainosus presence: with status migrainosus Intractability: intractable Qualified Code(s): G43.011 - Migraine without aura, intractable, with status migrainosus Patient Disposition: Home, Self-Care Instructions: Migraine Headache (ED), Ocular Migraine (ED) Prescriptions: No Action escitalopram oxalate 20 mg Tablet 20 mg PO DAILY RF: 0 ketorolac 10 mg tablet 10 mg PO TID PRN (Reason: pain) 5 Days RF: 0 cyclobenzaprine 10 mg tablet 10 mg PO TID PRN (Reason: muscle spasm) Qty: 7 RF: 0 ibuprofen 600 mg tablet 600 mg PO TID PRN (Reason: pain) Qty: 10 RF: 0 prednisone 20 mg tablet 40 mg PO DAILY 5 Days Qty: 10 RF: 0 doxycycline hyclate 100 mg capsule 100 mg PO BID 7 Days Qty: 14 RF: 0 doxycycline monohydrate 100 mg capsule 100 mg PO BID Qty: 20 RF: 0 escitalopram oxalate 10 mg tablet 10 mg PO DAILY RF: 0 norethindrone (contraceptive) [Imelda] 0.35 mg tablet 0.35 mg PO DAILY Qty: 28 RF: 4 Referrals: Physician,None [Primary Care Provider] - 1 week
[2021-09-13 13:29] VITALS: BP 136/55; PULSE 62; RESP 16; TEMP 36.7; O2SAT 97
[2021-09-13] MEDS: 0.9 % Sodium Chloride 1,000 ML 999 ML IVCONT ×2 (13:47→14:11)
[2021-09-13] MEDS: Ketorolac Tromethamine 30 MG/ML VIAL IVPUSH (14:37)
[2021-09-13 14:40] VITALS: BP 100/55; PULSE 61; RESP 16; O2SAT 99
--- NOTE | 2021-09-13 14:56 | PC.NURSE ---
pt alert and oriented, vss. afebrile. pt reports she tested positive for covid 10 days ago, yesterday she started having increased sob and wheezing. she denies chest pain, headache/blurry vision. no weakness.
[2021-09-13 14:59] LABS: Appearance Urine CLOUDY; Color Urine STRAW; Glucose Urine UA NEG (NEG); Leukocyte Esterase Urine 1+ (NEG); Nitrite Urine NEG (NEG); Specific Gravity - Urine 1.015 (1.005-1.025); UACC Culture Trigger YES; Urine Blood NEG (NEG); Urine Ketones NEG (NEG); Urine Protein TRACE MG/DL (NEG-TRACE)
[2021-09-13 15:01] LABS: UPreg QC Valid YES; Urine Pregnancy NEGATIVE (NEGATIVE)
[2021-09-13 15:11] LABS: Bacteria Urine 2+ /LPF; Squamous Epithelial Cell Urine 4+ /LPF
[2021-09-13 15:12] LABS: RBC Urine 0 /HPF (0)
== END 2021-09-13 16:01 | disposition home or self-care (01) ==
PROVIDERS: Emergency Provider Emergency Medicine
DX: G43.011 Migraine without aura, intractable, with status migrainosus (principal); Z79.899 Other long term (current) drug therapy
CPT/HCPCS: 81001; 81025; 87086; 96361; 96374; 96375; 99284; J1885; J2550

== ENCOUNTER 2022-05-26 22:13 | Emergency (ER) | payer OTHER, SELFPAY ==
[2022-05-26 23:12] VITALS: BP 132/79; PULSE 62; RESP 18; TEMP 36.8; O2SAT 100; BMI 29.9
[2022-05-26 23:24] LABS: Basophils Percent Auto 0.4 % (0-2); Eosinophils Absolute Auto 0.1 X10*3/uL (0.0-0.4); Eosinophils Percent Auto 0.6 % (0-4); Hemoglobin 12.9 g/dl (12.0-16.0); Imm Gran Abs Auto 0.02 X10*3/uL (0.00-0.03); Imm Gran Pct Auto 0.3 % (0.0-0.4); Lymphocytes Absolute Auto 2.5 X10*3/uL (1.2-4.9); Lymphocytes Percent Auto 31.1 % (20-40); MANUAL DIFF FLAG NO; Mean Corpuscular HGB Conc 32.3 g/dl (31.0-35.0); Mean Corpuscular Hemoglobin 27.1 pg (27.0-33.0); Mean Platelet Volume 10.5 fL (9.4-12.3); Monocytes Absolute Auto 0.7 X10*3/uL (0.1-1.2); Monocytes Percent Auto 8.3 % (2-11); Neutrophils Absolute Auto 4.7 x10*3/uL (2.0-8.3); Neutrophils Percent Auto 59.3 % (45-73); Platelet Count 334 X10*3/uL (160-400); Red Blood Count 4.76 X10*6/uL (4.20-5.50); Red Cell Distribution Width 13.5 % (11.0-16.0); White Blood Count 7.9 X10*3/uL (4.8-10.8)
[2022-05-26 23:43] LABS: Alanine Aminotransferase 12 U/L (0-31); Albumin Level 4.9 g/dL (3.5-5.0); Alkaline Phosphatase 67 U/L (39-117); Anion Gap 15 (12-20); Aspartate Amino Transferase 13 U/L (5-31); Bilirubin Total 0.7 mg/dL (0.0-1.0); Blood Urea Nitrogen 11 mg/dL (9-16); Calcium 9.6 mg/dL (8.4-10.2); Carbon Dioxide 26 mmol/L (22-29); Chloride 102 mmol/L (96-108); Creatinine Clr Calc Pharmacy 98.4; Estimated Glomerular Filt Rate > 60; Glucose Random 96 mg/dL (60-115); Magnesium 2.2 mg/dL (1.6-2.6); Potassium 3.7 mmol/L (3.3-5.1); Sodium 139 mmol/L (135-145); Total Protein 8.3 g/dL (6.5-8.0)
== END 2022-05-27 04:56 | disposition left against medical advice (07) ==
LOC: HO.ED 05-27 04:47
PROVIDERS: Emergency Provider Emergency Medicine; PCP Internal Medicine
DX: R51.9 Headache, unspecified (principal)
CPT/HCPCS: 36415; 80053; 83735; 85025; 99281; 99283